=== PATIENT | female | born 1950 | race Caucasian/White ===

== ENCOUNTER → 2021-09-23 | Outpatient (CLI) | payer BC ==
[~2021-09-23] MED LIST: BUDE10.22; IBUP200; MELATONIN10 M6
== END ==
LOC: LAB SHORT 13:00
DX: N30.00 Acute cystitis without hematuria (principal)
CPT/HCPCS: 87077; 87086; 87186

== ENCOUNTER → 2021-10-29 | Outpatient (CLI) | payer BC ==
[2021-10-29 11:34] LABS: Source, Urine Clean Catch
[2021-10-29 14:52] LABS: Appearance, Urine Clear (Clear); Bilirubin, Urine Neg (Neg); Blood, Urine Neg (Neg); Color, Urine Yellow (P-Yellow); Glucose Qualitative, Urine Neg (Neg); Ketones, Urine Neg (Neg); Leukocyte Esterase, Urine Neg (Neg); Nitrite, Urine Neg (Neg); Protein, Urine Neg (Neg); Specific Gravity, Urine 1.015 (1.003-1.022); Urobilinogen, Urine NORM (Normal); pH, Urine 6.5 (5.0-8.0)
== END | disposition home or self-care (01) ==
LOC: LAB SHORT 09:04 → LAB 09:04
PROVIDERS: Student in an Organized Health Care Education/Training Program
DX: N32.81 Overactive bladder (principal)
CPT/HCPCS: 81003

== ENCOUNTER 2023-03-10 09:36 | Day surgery (SDC) | payer BC ==
[2023-03-10] VITALS (19 sets, daily range): BP systolic 101–143; BP diastolic 51–103
[~2023-03-10] VITALS: Ht 170.2 cm; Wt 71.0 kg
[~2023-03-10 09:36] MED LIST changes: +ALBU90OI INH; -BUDE10.22; +MELO7.5 PO; +SYMBICORT 80-10.2 GM INH
[2023-03-10] MEDS ORDERED: ACET500 PO (10:14)
[2023-03-10] MEDS ORDERED: MUPIROCIN22 G4 TOP (10:33)
--- NOTE | 2023-03-10 11:31 | NUR ---
OXYCONTIN NOT GIVEN DUE TO PATIENT ALLERGY. DISCUSSED THIS WITH DR CONNELLY.
--- NOTE | 2023-03-10 19:14 | NUR ---
SHIFT SUMMARY NEW ADMIT TO UNIT FROM PACU POD [address] CONNELLY. ALERT, ORIENTED, PLEASANT. SPINAL ANESTHESIA WORE OFF GRADUALLY AND PATIENT WAS ABLE TO MOVE BILAT LE, AMBULATE SBA WITH FWW AND GAIT BELT TO TOILET, THEN UP TO RECLINER. ROOM AIR. POST OP VSS. NO TELE. ONE EPISODE NAUSEA, MEDICATED PER EMAR WITH ZOFRAN, RESOLVED AND TOLERATED DINNER AND PO LIQUIDS. VOIDING WELL. SALINE LOCKED EXCEPT ABX. LEFT HIP AQUACEL C/D/I. PLAN TO WORK WITH PHYSICAL THERAPY IN AM AND DISCHARGE TOMORROW. PAIN CONTROLLED WITH TORADOL SO FAR.
[2023-03-11 00:08] VITALS: BP 109/76
[2023-03-11 02:32] VITALS: BP 111/62
--- NOTE | 2023-03-11 03:39 | NUR ---
SHIFT SUMMARY PT S/P LEFT TOTAL HIP. PT HAS RESTED T/O THE SHIFT, PT MEDICATED FOR PAIN WITH EFFECT WITH SCHEDULED TYLENOL/TORADOL AND PRN ULTRAM. PT HAS HAD SOME NAUSEA THIS SHIFT THAT WAS RELEIVED WITH ZOFRAN. PT HAD A SPINAL AND REPORTS SLIGHT NUMBNESS IN AFFECTED EXT POST SURGERY THAT HAS SINCE RESOLVED. PT REPORTS FEELING CLAMMY AFTER AMBULATING TO THE BATHROOM. SYMPTOMS QUICKLY RESOLVED AFTER RETURNING BACK FROM THE BATHROOM AND GETTING INTO BED, VITALS OBTAINED AND WERE STABLE. PT REPORTS DISCOMFORT WITH COLEMAN HOSE ON LEFT LEG STATING THAT IT WAS TOO TIGHT. SHE REQUESTED A BIGGER SIZE. SIZE MEDIUM WAS SWAPPED FOR A SIZE LARGE, PT REPORTS RELIEF WITH INTERVENTION. DRESSING INTACT TO LEFT HIP. PT VOIDING AND TOLEARING PO INTAKE. PLAN IS FOR DISCHARGE TODAY.
[2023-03-11 04:49] LABS: BASOPHILS ABSOLUTE AUTO 0.02 K/mm3 (0.00-0.23); BASOPHILS PERCENT AUTO 0 % (0-2); EOSINOPHILS PERCENT AUTO 0 % (0-6); Hematocrit 31.3 % (33.0-51.0); Hemoglobin 10.8 g/dL (11.5-16.0); IMMATURE GRAN ABSOLUTE AUTO 0.03 K/mm3 (0.00-0.10); IMMATURE GRAN PERCENT AUTO 0 % (0-1); LYMPHOCYTES PERCENT AUTO 12 % (21-46); MONOCYTES ABSOLUTE AUTO 0.48 K/mm3 (0.16-1.47); MONOCYTES PERCENT AUTO 6 % (4-13); Mean Corpuscular HGB Conc 34.5 g/dL (31.5-36.5); Mean Corpuscular Volume 87 fL (80-100); NEUTROPHILS ABSOLUTE AUTO 6.07 K/mm3 (1.96-9.15); NEUTROPHILS PERCENT AUTO 81 % (41-73); Platelet Count 203 K/mm3 (150-400); RDW Coefficient Variation 13.3 % (11.7-14.2); RDW Standard Deviation 41.9 fL (35.1-46.3)
[2023-03-11 05:14] LABS: Bun/Creatinine Ratio 16.9 (12.0-20.0); Creatinine, Blood 0.65 mg/dL (0.40-1.00); Potassium, Blood 3.9 mmol/L (3.5-5.5)
[2023-03-11 06:36] VITALS: BP 107/72
[2023-03-11] MEDS ORDERED: TRAM50 PO (08:02)
[2023-03-11] MEDS ORDERED: ASPI81CH PO (08:02)
--- NOTE | 2023-03-11 12:17 | NUR ---
"Spiritual Care | Pt. request Pt. is awake in bed and welcomes my visit. Spouse is present. Pt. is preparing to be discharged. Facilitate a lengthy life review and engage with interest and a calming presence. Normalize the Pt. experience. Pt. displays evidence of awareness and engagement. Rapport is established and the familty verbalized gratitude for the spiritual care visit."
--- NOTE | 2023-03-11 12:45 | NUR ---
DISCHARGE SUMMARY PT A&OX4, VSS/RA, SHARLENE PO, VOIDING, AMB FWW, IV DC'D, PAIN MANAGED. POD1 L DISHA, AQUACEL CDI, TEDS/POLAR FLORECITA, ELEVATED AT REST. DC INS PROVIDED. PT AND REP UNDERSTANDING THOSE INSTRUCTIONS INCLUDING DRESSING CHANGES, FU WITH SURGEON AND PT OUTPT, ASA BID, PAIN MEDICATION, WHEN TO CALL THE DR. LEFT FLOOR VIA WC WITH [employer] ENGINEER TO GO HOME WITH WITH ALL PERSONAL POSSESSIONS INCLUDING DC PACKET, 1 NARC SCRIPT, AQUACEL DRESSINGS, POLAR FLORECITA.
== END 2023-03-11 12:15 | disposition home or self-care (01) ==
LOC: ORSCMMR 09:36 → ORD 11:00 → ORSCMMR 11:00 → SURS 15:37 → ORSCMMR 23:12 → SURS 03-11 12:15
PROVIDERS: Orthopaedic Surgery
PROC: 0SRB0JZ Replacement of Left Hip Joint with Synthetic Substitute, Open Approach (ICD-10-PCS; principal; 2023-03-10 11:00)
DX: M16.12 Unilateral primary osteoarthritis, left hip (principal); Z23 Encounter for immunization; J45.909 Unspecified asthma, uncomplicated; Z79.899 Other long term (current) drug therapy
CPT/HCPCS: 36415; 72170; 80048; 85025; 94640; 94664; 94760; 97110; 97116; 97162; 97530; A9270; C1776; J0171; J0690; J0735; J1885; J2371; J2405; J2704; J2795; J3010; J7120; Q2036

== ENCOUNTER 2025-04-11 06:10 | Day surgery (SDC) | payer MEDICARE ==
[2025-04-11] VITALS (11 sets, daily range): BP systolic 110–141; BP diastolic 56–83
[~2025-04-11] VITALS: Ht 175.3 cm; Wt 71.7 kg
[~2025-04-11 06:10] MED LIST changes: +ACET500 PO; +ASPI81CH PO; +B-121000 MC6 SL; +GLYCOPYRROLATE PO; +IBUP400 PO; +MUPIROCIN22 G4 TOP; +PANT20 PO; +TRAM50 PO; +TRAZ50 PO
[2025-04-11] MEDS ORDERED: Chlorhexidine Mouth Care 15 ML UDC MT SCH (06:25)
[2025-04-11] MEDS ORDERED: Tranexamic Acid 100 ML IV SCH (06:25)
[2025-04-11] MEDS ORDERED: Ropivacaine 0.5% HCl/Pf 123.125 MG,EPINEPHrine HCL 0.25 MG,Ketorolac Tromethamine 15 MG... INFIL SCH (06:25)
[2025-04-11] MEDS ORDERED: CeFAZolin Sodium 2,000 MG in NS 100 ML IV SCH ×2 (06:25→15:30)
[2025-04-11] MEDS ORDERED: ALPR.5 PO (06:28)
[2025-04-11] MEDS ORDERED: FentaNYL Citrate 50 MCG/ML 2 ML Injection ONE (07:25)
[2025-04-11] MEDS ORDERED: Ondansetron HCl 2 MG / ML 2ML Vial IV PRN ×2 (08:00→09:15)
[2025-04-11] MEDS ORDERED: FentaNYL Citrate 50 MCG/ML 2 ML Injection IV PRN ×3 (08:00)
[2025-04-11] MEDS ORDERED: HYDROmorphone HCl/Pf 1MG SYR IV PRN ×2 (08:00→09:20)
[2025-04-11] MEDS ORDERED: Metoclopramide HCl 5MG / ML 2ML Vial IV PRN ×2 (08:00→09:25)
[2025-04-11] MEDS ORDERED: Phenylephrine HCl 100 MCG/ML-NS 10MLSYR (1MG/10ML) ONE (08:21)
--- NOTE | 2025-04-11 08:50 | NUR ---
04/11/25 0850 Tiffany Calhoun STD. FEMORAL STEM SIZE 5 STD POLISHED CEMENTED REF:[id number] EXP:10-10-2026
[2025-04-11] MEDS ORDERED: Prochlorperazine Edisylate 10 mg Vial IV PRN (09:20)
[2025-04-11] MEDS ORDERED: FLU VACC TS2025(65UP)/MF59C/PF 45 MCG/0.5 ML SYRINGE IM SCH (09:20)
[2025-04-11] MEDS ORDERED: Magnesium Hydroxide Conc 10 ML UDC PO PRN (09:25)
[2025-04-11] MEDS ORDERED: Formoterol/Mometasone MDI 5/100 mcg 13 GM INH SCH (09:30)
--- NOTE | 2025-04-11 09:57 | NUR ---
PT TO ROOM 218 FROM PACU. HIP DRESSING CDI. PULSES PALPABLE DISTALLY. UNABLE TO FEEL TOES OR WIGGLE TOES AT THIS POINT. POST OP VS STARTED AND STABLE. SNACKS PROVIDED. WILL CONTINUE TO MONITOR.
[2025-04-11] MEDS ORDERED: ASPI81CH PO (10:10)
[2025-04-11] MEDS ORDERED: Ketorolac Tromethamine 15mg Vial IV SCH (12:00)
== END 2025-04-11 17:37 | disposition home or self-care (01) ==
LOC: ORSCMMR 06:10 → ORD 07:30 → SURS 09:47 → ORSCMMR 17:37
PROVIDERS: Orthopaedic Surgery
PROC: 0SR90J9 Replacement of Right Hip Joint with Synthetic Substitute, Cemented, Open Approach (ICD-10-PCS; principal; 2025-04-11 07:30)
DX: M16.11 Unilateral primary osteoarthritis, right hip (principal); J45.909 Unspecified asthma, uncomplicated; F41.9 Anxiety disorder, unspecified; K21.9 Gastro-esophageal reflux disease without esophagitis; Z79.899 Other long term (current) drug therapy
CPT/HCPCS: 72170; 97116; 97162; 97530; A9270; C1713; C1776; J0166; J0690; J0735; J1885; J2371; J2405; J2704; J2765; J2795; J3010; J7120